=== PATIENT | male | born 1990 | race Caucasian/White ===

== ENCOUNTER 2016-04-26 20:03 | Emergency (ER) | payer SELFPAY ==
[~2016-04-26] VITALS: Ht 175.3 cm; Wt 70.0 kg
[2016-04-26 20:06] VITALS: BP 153/86; PULSE 87; RESP 14; TEMP 98.2; O2SAT 98
[2016-04-26] MEDS ORDERED: IBUPROFEN 600 MG TAB PO ONE (21:00)
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
[2016-04-26] MEDS ORDERED: HYDR-3533 PO (22:13)
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
[2016-04-26] MEDS ORDERED: oxyCODONE/ACETAMINOPHEN 5 MG/325 MG TAB PO ONE (22:15)
[2016-04-26] MEDS ORDERED: PERC5TAB12 PO (22:31)
[2016-05-07] MEDS ORDERED: BIOT1CAP2 PO (08:39)
[2016-05-07] MEDS ORDERED: CREAPOW PO (08:39)
[2016-05-07] MEDS ORDERED: ARGI500P PO (08:39)
[2016-05-07] MEDS ORDERED: FISH500C PO (08:39)
[2016-05-07] MEDS ORDERED: TESTOSTERONE BOOSTER PO (08:39)
[2016-05-07] MEDS ORDERED: ESTROGEN BLOCKER PO (08:39)
[2016-05-07] MEDS ORDERED: IBUP800T23 PO (12:28)
== END 2016-04-26 22:33 | disposition home or self-care (01) ==
LOC: NEPB 20:03
DX: S62.515A Nondisplaced fracture of proximal phalanx of left thumb, initial encounter for closed fracture (principal); V28.4XXA Motorcycle driver injured in noncollision transport accident in traffic accident, initial encounter; Y93.I9 Activity, other involving external motion; Y92.410 Unspecified street and highway as the place of occurrence of the external cause
CPT/HCPCS: 73130; 99283; L3808

== ENCOUNTER → 2016-05-07 | Day surgery (SDC) | payer SELFPAY ==
[~2016-05-07] VITALS: Ht 175.3 cm; Wt 71.0 kg
[~2016-05-07] MED LIST: ACETAMINOPHEN 1000 MG/100 ML VIAL IV ONE; ARGI500P PO; BIOT1CAP2 PO; BUPIVACAINE HCL PF 0.5% 30 ML VIAL ONE; CREAPOW PO; DEXT 5%-NACL 0.45% 1000 ML INJ 1,000 ML IV SCH; ESTROGEN BLOCKER PO; FAMOTIDINE 20 MG/2 ML VIAL ONE; FISH500C PO; IBUP800T23 PO; LACTATED RINGER'S 1000 ML INJ 1,000 ML IV ONE; LACTATED RINGER'S 1000 ML INJ 1,000 ML ONE; MIDAZOLAM HCL 2 MG/2 ML VIAL ONE; ONDANSETRON HCL 4 MG/2 ML VIAL IV PUSH ONE; PERC5TAB12 PO; POVIDONE IODINE 10% OINT 30 GM TUBE ONE; PROPOFOL 200 MG/20 ML AMP IV ONE; SODIUM CHLORIDE 0.9% FLUSH 5 ML FLUSH IVF PRN; SODIUM CHLORIDE 0.9% FLUSH 5 ML FLUSH IVF SCH; TESTOSTERONE BOOSTER PO
[2016-05-07 08:41] VITALS: BP 128/78; PULSE 59; RESP 18; TEMP 97.5; O2SAT 100
[2016-05-07] MEDS: ceFAZolin 2 GM PREMIX 50 ML ONE ×2 (08:44→10:15)
[2016-05-07 08:53] LABS: MEAN CELL VOLUME 93.3 FL (80.0-100.0); MEAN CORPUSCULAR HEMOGLOBIN 30.8 PG (27.0-34.0); PLATELET COUNT 197 TH/MM3 (150-450); RED BLOOD COUNT 5.03 MIL/MM3 (4.50-5.90); RED CELL DISTRIBUTION WIDTH 11.4 % (11.6-17.2); REVIEW FLAG FINAL; WHITE BLOOD COUNT 5.8 TH/MM3 (4.0-11.0)
--- NOTE | 2016-05-07 10:13 | HP.UPD ---
H&P Update Date: May 07, 2016 Note The Pre-Admit History and Physical Examination regarding the above named patient was reviewed (including, but not limited to, vital signs, medications, allergies, co-morbid conditions), and upon re-examination it is noted that: Indicated with "X" x - the patient's condition has not significantly changed since the last examination. [] - the patient's condition has changed since the last examination. Changes: Leonila Baxter MD May 07, 2016 10:12
--- NOTE | 2016-05-07 12:19 | HHI.PR ---
Immediate Post Op Note Procedure Date: May 07, 2016 Pre Op Diagnosis: (1) Other displaced fracture of base of first metacarpal bone, left hand, initial encounter for closed fracture Post Op Diagnosis: (1) Other displaced fracture of base of first metacarpal bone, left hand, initial encounter for closed fracture Surgeon: Leonila Baxter Loop Sewer(s): None Procedure: Closed reduction and percutaneous fixation of the left thumb metacarpal fracture. Anesthesia: General Drains: None Tourniquet time (min at mmHg) NA Patient to: PACU Patient Condition: Good Implant/Devices: SEE IMPLANT LOG (if applicable) Date/Time of Procedure: SEE SURGICAL CARE RECORD Leonila Baxter MD May 07, 2016 12:19
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
[2016-05-07 13:35] VITALS: BP 120/71; PULSE 57; RESP 20; TEMP 97.3; O2SAT 99
== END | disposition home or self-care (01) ==
LOC: PHSDC 07:20
PROVIDERS: ATTEND Specialist
DX: S62.232A Other displaced fracture of base of first metacarpal bone, left hand, initial encounter for closed fracture (principal); V29.9XXA Motorcycle rider (driver) (passenger) injured in unspecified traffic accident, initial encounter
CPT/HCPCS: 01820; 26608; 36415; 76000; 85027; J0131; J0690; J2250; J2405; J3010; J7120; L3808